=== PATIENT | female | born 1945 | race Caucasian/White ===

== ENCOUNTER 2025-05-01 20:19 | Emergency (ER) | payer MEDICARE, OTHER, SELFPAY ==
--- OUTSIDE RECORDS SUMMARY | 2022-04-10 18:00 | XMS_ITS | Continuity of Care Document ---
Author Organization [place] [facility] [facility] . Address [address] [place] [address] Phone Care Team Providers Care Manganese Wheeler Name Role Phone Pawel Steele MD Unavailable Unavailable Procedures Procedure Date INITIAL HOSPITAL CARE Advance Directives Directive Yes / No Effective Date File Name No Information Encounters Encounter Description Practice Location Reason(s) For Visit Diagnoses Date Provider Providers Copied on Encounter INITIAL HOSPITAL CARE [place] [facility], [facility] [address] [place], [place], [id number] , tel: [phone] [facility] subdr hem w/o loss of consciousness, initEncephalopathy, unspecifiedEssentia l (primary) hypertensionHypothy roidism, unspecified 2 [facility] [facility]. [address], [place], [place], [id number] , [place]. tel: [phone] Family History Family Member Type Diagnosis Age At Onset No Information Payers Payer name Insurance type Covered democrat ID Authoriza tion(s) MEDICARE [place] PART B MB [id number] Hum[employer] CI [id number] Social History Type Description Quantity Date Captured Comments Sex Female Smoking Status No Information Chief Complaint And Reason For Visit No Information History Of Present Illness Encounter Date Complaint History Of Prese nt Illness No Information Instructions Date Instruction Additional Infor mation No Information Assessments Type Assessment Date No Information
[2025-05-01] VITALS (10 sets, daily range): BP systolic 128–161; BP diastolic 57–77; PULSE 18–89; RESP 13–71; TEMP 36.8; O2SAT 97–99
--- NOTE | ~2025-05-01 | CT_ITS ---
EXAMINATION: CT brain wo con DATE: 05/01/2025 21:23 INDICATION: Syncope. Vomiting. TECHNIQUE: Computed tomography (CT) of the head was performed without intravenous contrast. The mA was adjusted according to patient size. Iterative reconstruction technique was employed. The dose-length product was 681.00 mGy-cm. COMPARISON: None FINDINGS: No acute intracranial bleed. No extra-axial collections. Extensive chronic small vessel ischemic change of periventricular white matter. No acute bony lesions. IMPRESSION: 1. Limited noncontrast CT head shows no acute intracranial lesions. Chronic ischemic change of periventricular white matter. 2. No acute bony lesions. 2 cm size retention cyst of left maxillary sinus. Reviewed, dictated and finalized at location T. TECHNICAL ARCHITECT IMPRESSION: 1. Limited noncontrast CT head shows no acute intracranial lesions. Chronic isc hemic change of periventricular white matter. 2. No acute bony lesions. 2 cm size retention cyst of left maxillary sinus.
--- NOTE | ~2025-05-01 | XR_ITS ---
EXAMINATION: XR chest 1V portable DATE: 05/01/2025 21:16 INDICATION: Chest pain TECHNIQUE: A single frontal view of the chest was obtained. COMPARISON: None. FINDINGS: Cardiomegaly. Severe atherosclerotic aorta. Lungs do not show acute findings. Post surgical changes of the left breast. IMPRESSION: 1. No acute findings of chest. Severe atherosclerotic aorta. Postoperative changes of left breast. Reviewed, dictated and finalized at location T. IDER RELATIONS CONSULTANT IMPRESSION: 1. No acute findings of chest. Severe atherosclerotic aorta. Postoperative gamboa ges of left breast.
--- NOTE | 2025-05-01 20:29 | ECG_ITS ---
Test Date: 2025-05-01 21:08:40 Measurements Intervals [place] Rate: 70 P: 57 ME: 182 QRS: 16 QRSD: 89 T: 67 QT: 430 QTc: 467 Interpretive Statements SINUS RHYTHM INDETERMINATE AXIS POSSIBLE RIGHT VENTRICULAR CONDUCTION DELAY [RSR (QR) IN V1/V2] No previous ECG available for comparison Electronically Signed On 05-02-2025 06:42:16 SIDE PANEL HANGER by Sanjuanita Wilson M.D.
--- NOTE | 2025-05-01 21:13 | ED_ITS ---
HPI - Syncope General Chief Complaint: Syncope Stated Complaint: near syncope Time Seen by Provider: 05/01/25 21:00 History of Present Illness HPI narrative: 80-year-old female with a past medical history including hypertension, memory issues, urinary incontinence and previous TIAs on clopidogrel. Patient presents to the emergency department after a near syncopal episode at home. Patient was playing a game with her when she got up suddenly and felt very lightheaded and dizzy and her eyes rolled back and she almost fainted. Patient did not lose consciousness and sat back down. patient denies any prodromal symptoms prior to standing up and feeling lightheaded to the point she was going to lose consciousness. Denies any chest pain, back pain, fever, chills. No weakness or asymmetry or any ataxia in the arms or legs. Was otherwise in her normal state of health. No traumatic injuries. After the event she vomited about 3 times and was given Zofran by EMS with resolution. Symptoms of lightheadedness and nausea reported by patient to last about 10 minutes and then fully resolved. Currently no symptoms. Related Data Allergies Allergy/AdvReac Type Severity Reaction Status Date / Time No Known Allergies Allergy Unverified 08/20/14 14:05 Review of Systems 2 Review of Systems: As reviewed above in HPI Exam 2 Narrative: GENERAL: [Well-appearing, well-nourished, and in no acute distress.] HEAD: [Normocephalic, atraumatic.] EYES: [PERRLA and EOMI.] ENT: Nares clear, no rhinorrhea or epistaxis. Mucous membranes moist. NECK: Supple. CHEST: [Clear to auscultation. No respiratory distress.] HEART: [Regular rate and rhythm]. No murmur heard. [Normal peripheral pulses.] ABDOMEN: [Soft, nondistended], [nontender], [No rigidity or guarding] EXTREMITIES: Normal range of motion. [No edema.] SKIN: Warm, dry, no rash. NEURO: No deficits. Awake alert oriented. Answering all my questions appropriately. A&O x4. No ataxia in the arms Or legs. No strength deficits in the arms or legs. No facial asymmetries or tongue deviation. Cranial nerves 2-12 are intact. NIH is 0. PSYCH: [Normal mood and affect.] Course Vital Signs Vital signs: Vital Signs Temperature 36.8 C 05/01/25 20:22 Pulse Rate 82 05/01/25 20:22 Respiratory Rate 22 H 05/01/25 20:22 Blood Pressure 161/77 H 05/01/25 20:22 Pulse Oximetry 97 05/01/25 20:22 Oxygen Delivery Room Air 05/01/25 20:22 Temperature 36.8 C 05/01/25 23:30 Pulse Rate 18 L 05/01/25 23:30 Respiratory Rate 71 H 05/01/25 23:30 Blood Pressure 128/57 L 05/01/25 23:30 Pulse Oximetry 98 05/01/25 23:30 Oxygen Delivery Room Air 05/01/25 20:22 MDM - Syncope MDM Narrative Medical decision making narrative: 80-year-old female with a past medical history including hypertension, memory issues, urinary incontinence and previous TIAs on clopidogrel. Patient presents to the emergency department after a near syncopal episode at home. Patient was playing a game with her when she got up suddenly and felt very lightheaded and dizzy and her eyes rolled back and she almost fainted. Patient did not lose consciousness and sat back down. patient denies any prodromal symptoms prior to standing up and feeling lightheaded to the point she was going to lose consciousness. Denies any chest pain, back pain, fever, chills. No weakness or asymmetry or any ataxia in the arms or legs. Was otherwise in her normal state of health. No traumatic injuries. After the event she vomited about 3 times and was given Zofran by EMS with resolution. Symptoms of lightheadedness and nausea reported by patient to last about 10 minutes and then fully resolved. Currently no symptoms. No deficits. Awake alert oriented. Answering all my questions appropriately. A&O x4. No ataxia in the arms Or legs. No strength deficits in the arms or legs. No facial asymmetries or tongue deviation. Cranial nerves 2-12 are intact. NIH is 0. Patient is hemodynamically stable without any tachycardia, fever, hypoxemia or blood pressure concerns. She has an unremarkable examination. Symptoms sound like they could have been related to postural dizziness and hypotension transiently given that her symptoms resolved after sitting back down and resting for several minutes. Less likely intracranial pathology such as stroke or TIA but she does have risk factors and previous TIAs. She is already On antiplatelets with clopidogrel for this. She also takes donepezil for memory issues. Low suspicion electrolyte imbalances or cardiac anomaly/dysrhythmia, but potential for dehydration so she was given a fluid bolus while laboratory studies EKG chest x-ray and a CT of the head ordered. Lab showed no leukocytosis or anemia. Normal electrolytes aside from A mildly low sodium 133. Normal creatinine. Normal glucose. Unremarkable LFTs. chest x-ray without any acute findings. CT of the head without any acute intracranial pathology. Chronic white matter disease. EKG shows normal sinus rhythm without any ectopy or derangements. No ST segment concerns. Patient ambulatory with a steady gait and has no further complaints or symptoms while here in the emergency department. She remains hemodynamically stable. No further issues and observed for several hours. Safe for discharge home at this time. Was given return precautions and PCP follow-up instructions. Medical Records Attestation: I reviewed the patient's medical records. Lab Data Attestation: I reviewed the patient's lab results. 05/01/25 21:50 05/01/25 21:50 Labs: Lab Results 05/01/25 05/01/25 Range/Units 21:50 21:50 WBC 9.9 (4.5-10.0) K/mm3 RBC 4.41 (4.2-5.4) M/mm3 Hgb 12.7 (12.0-15.0) g/dL Hct 38.8 (37.0-47.0) % MCV 88.0 (80-100) fl MCH 28.8 (26-34) pg MCHC 32.7 (32-36) g/dl RDW 12.8 (11.5-14.5) % Plt Count 224 (150-375) k/mm3 MPV 10.9 H (7.4-10.4) fl Immature Gran % (Auto) 0.4 (0-0.5) % Neut % (Auto) 80.1 H (45.5-73.1) % Lymph % (Auto) 14.3 L (18.3-44.2) % [place] % (Auto) 4.6 (2.6-8.5) % Eos % (Auto) 0.2 (0-4.4) % Baso % (Auto) 0.4 (0.2-1.2) % Lymph # (Auto) 1.42 (0.9-3.2) K/mm3 [place] # (Auto) 0.5 (0.1-0.6) K/mm3 Eos # (Auto) 0.0 (0-0.3) K/mm3 Baso # (Auto) 0.0 (0.0-0.1) K/mm3 Abs Immat Gran (auto) 0.04 H (0.00-0.031) K/mm3 Absolute Neuts (auto) 8.0 H (1.3-6.7) K/mm3 Absolute Nucleated RBC 0.000 (0.0-0.012) K/mm3 Nucleated RBC % 0.0 (0.0-0.2) % Sodium 133 L (137-145) mmol/L Potassium 4.2 (3.4-5.0) mmol/L Chloride 100 (98-107) mmol/L Carbon Dioxide 25 (22-30) mmol/L Anion Gap 8 (4-12) mmol/L BUN 14 (7-17) mg/dL Creatinine 0.62 L (0.7-1.0) mg/dL Estim Creat Clear Calc 70 ml/min Estimated GFR > 60 (59 - ) Glucose 121 H (65-110) mg/dL Calcium 9.4 (8.4-10.2) mg/dL Total Bilirubin 1.4 H (0.2-1.3) mg/dL AST 34 (14-36) U/L ALT 37 H (6-35) U/L Alkaline Phosphatase 80 (38-126) U/L Troponin I < 0.012 Cancelled (0.000-0.034) ng/mL Total Protein 7.0 (6.3-8.2) g/dL Albumin 4.0 (3.5-5.1) g/dL Imaging Data Attestation: I personally reviewed and interpreted this imaging study as follows: My impression: Impressions Head CT 05/01/25 21:24 IMPRESSION: 1. Limited noncontrast CT head shows no acute intracranial lesions. Chronic ischemic change of periventricular white matter. 2. No acute bony lesions. 2 cm size retention cyst of left maxillary sinus. Chest X-Ray 05/01/25 21:26 IMPRESSION: 1. No acute findings of chest. Severe atherosclerotic aorta. Postoperative changes of left breast. Discharge Plan Discharge Clinical Impression: Pre-syncope Patient Disposition: Home Condition: Stable Instructions: Antibiotic Form, Syncope (ED) Additional Instructions: laboratory studies EKG chest x-ray and cardiac enzymes were all unremarkable today. No signs of infection, hemorrhagic stroke, cardiac issues or Kidney/ liver injuries. You do have a slightly low sodium of 133 which could just be a component of dehydration which might explain her symptom today. We have provided you fluids here. Continue taking your home medications and maintain good oral hydration. Follow-up with regular doctor and return with any recurrent symptoms or new emergent concerns at any time. Patient Language: Amharic Follow-up/Referrals: PHYSICIAN NOT ON STAFF,NONSTAFF [Primary Care Provider] Time of Disposition: 23:11
[2025-05-01] MEDS: SODIUM CHLORIDE 0.9% IV 1,000 ML 999 ML IV CONT (21:50)
[2025-05-01 21:57] LABS: Hematocrit 38.8 % (37.0-47.0); Hemoglobin 12.7 g/dL (12.0-15.0); Immature Granulocyte Percent A 0.4 % (0-0.5); Lymphocytes Absolute Auto 1.42 K/mm3 (0.9-3.2); Mean Corpuscular HGB Conc 32.7 g/dl (32-36); Mean Corpuscular Hemoglobin 28.8 pg (26-34); Mean Corpuscular Volume 88.0 fl (80-100); Nucleated Red Blood Cells Absolute Auto 0.000 K/mm3 (0.0-0.012); Nucleated Red Blood Cells Perc 0.0 % (0.0-0.2); Platelet Count Result 224 k/mm3 (150-375); Red Blood Count 4.41 M/mm3 (4.2-5.4); White Blood Count 9.9 K/mm3 (4.5-10.0)
[2025-05-01 22:08] LABS: Alanine Aminotransferase 37 U/L (6-35); Albumin Level 4.0 g/dL (3.5-5.1); Alkaline Phosphatase 80 U/L (38-126); Anion Gap 8 mmol/L (4-12); Aspartate Amino Transferase 34 U/L (14-36); Bilirubin,Total 1.4 mg/dL (0.2-1.3); Blood Urea Nitrogen 14 mg/dL (7-17); Calcium 9.4 mg/dL (8.4-10.2); Carbon Dioxide 25 mmol/L (22-30); Chloride 100 mmol/L (98-107); Estimated CRCL calculation 70 ml/min; Estimated Glomerular Filt Rate > 60; Glucose 121 mg/dL (65-110); Potassium 4.2 mmol/L (3.4-5.0); Sodium 133 mmol/L (137-145); Total Protein 7.0 g/dL (6.3-8.2)
--- OUTSIDE RECORDS SUMMARY | 2025-05-01 22:10 | XMS_ITS | Clinical Summary ---
Author Organization [facility] Address [address] [place], [address] Care Team Providers Care Band Edger Name Role Phone Gunner Robles MD Primary Care Provider [phone] Social History Tobacco Use Types Packs/Day Years Used Date Smoking Tobacco: Never Assessed Sex and Gender Information Value Date Recorded Sex Assigned at Not on file Gender Identity Not on file Sexual Orientation Not on file Plan of Treatment Not on file Care Teams Band Edger Relationship Specialty Start Date End Date Gunner Robles MD PCP - General 06/15/10
--- OUTSIDE RECORDS SUMMARY | 2025-05-01 22:10 | XMS_ITS | CCD ---
Author Name Interface, [id number] Address [address] [place] [address] [facility] Address [address] [address] Allergies and Adverse Reactions Medication/Group Name Reaction Severity Date No known allergies Reason for Visit Functional Status Date Name/Question Score/Answer 06/30/2010 Karnofsky performance status 100 09/19/2011 Karnofsky performance status 100 12/30/2009 Karnofsky performance status 100 01/19/2011 Karnofsky performance status 100 02/08/2012 Karnofsky performance status 100 02/13/2007 Karnofsky performance status 100 02/25/2013 Karnofsky performance status 90 02/25/2014 Karnofsky performance status 90 03/06/2008 Karnofsky performance status 100 03/13/2012 Karnofsky performance status 90 03/14/2017 Karnofsky performance status 90 03/16/2015 Karnofsky performance status 90 03/30/2016 Karnofsky performance status 90 Medications Date Name Route Dose Frequency Instructions Start Date End Date Status Fill Status Indication 08/27 Levothyr oxine Oral PO 1.0 TABLET( S) daily 2016 active 08/27 Multivit amins Oral Tablet PO 1.0 TABLET( S) daily 2016 active 08/27 Irbesart an Oral PO 1.0 TABLET( S) daily 2016 active 08/27 Calcium Oral PO 1.0 TABLET( S) daily 2016 active 08/27 Magnesiu m Oral PO 1.0 TABLET( S) daily 2016 active 08/27 Atorvast atin Oral PO 1.0 TABLET( S) daily 2016 active 08/27 Metformi n Oral 24 hr Tab PO 1.0 TABLET( S), SUSTAIN ED RELEASE 24HR daily 2016 active Problems Diagnosis Status Date of Diagnosis Resolution Date 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
[2025-05-01 22:20] LABS: Troponin I < 0.012 ng/mL (0.000-0.034)
--- NOTE | 2025-05-01 23:05 | PC.NURSE ---
ambulated from bathroom to ed room w/o difficulty. stated not dizzy
--- NOTE | 2025-05-01 23:44 | PC.NURSE ---
2333-PATIENT REQUESTS COPY OF MEDICAL RECORD THEY ARE LEAVING TOMORROW TO RETURN HOME TO [place]. PATIENT STATES SHE WOULD LIKE TO HAVE INFORMATION TO PROVIDE TO HOME FAMILY PHYSICIAN. EXPLAINED TO PATIENT I CANNOT RELEASE MEDICAL RECORD. EXPLAINED TO PATIENT SHE WOULD HAVE TO OBTAIN ER RECORD FROM MEDICAL RECORDS DEPARTMENT ON SUNDAY. PATIENT REQUESTED TO HAVE DAUGHTER C PYTHON DEVELOPER RECORDS. FILLED OUT AUTHORIZATION FOR DISCLOSURE OF PROTECTED HEALTH INFORMATION FORM WHICH WAS SIGNED BY PATIENT. EXPLAINED TO PATIENT AND FAMILY FORM NORMALLY USED FOR RELEASE FROM FACILITY TO FACILITY AND THIS RN WAS UNSURE IF MEDICAL RECORDS WOULD ACCEPT THE FORM. FAMILY VERBALIZED UNDERSTANDING. FORM ATTACHED TO MEDICAL RECORDS FOR PROCESSING.
== END 2025-05-01 23:33 | disposition home or self-care (01) ==
PROVIDERS: Registered Nurse; Emergency Provider Student in an Organized Health Care Education/Training Program
DX: R55 Syncope and collapse (principal); I10 Essential (primary) hypertension
CPT/HCPCS: 36415; 70450; 71045; 80053; 84484; 85025; 93005; 96360; 99284; J7030